=== PATIENT | male | born 1975 | race Caucasian/White ===

== ENCOUNTER 2024-12-21 13:03 | Outpatient (AMB) | payer OTHER, SELFPAY ==
--- NOTE | 2024-12-21 13:10 | MHC.OFFVIS ---
Intake Visit Reasons: lab follow up Intake Note: Patient is present for LABS F/U Urology Medication:TADALAFIL,TAMSULOSIN Antibiotic Allergy:NONE Blood Thinner:NONE Property Controller Required: No Allergies No Known Allergies Allergy (Verified 12/21/24 13:11) Assessment & Plan Assessment & Plan (1) Hypogonadism in male: Code(s): E29.1 - Testicular hypofunction Category: Medical Orders: Orders Complete Blood Count no Diff 6 Months E29.1 - Testicular hypofunction AMB Urinalysis Automated Today Z13.9 - Encounter for screening, unspecified Prostate Specific Antigen 6 Months E29.1 - Testicular hypofunction Testosterone, Total 6 Months E29.1 - Testicular hypofunction Medications: Discontinued cephalexin Discontinued Reason: Patient no longer taking 500 mg PO BID 5 days 10 caps 0RF amoxicillin-pot clavulanate 500-125 mg (Augmentin) Discontinued Reason: Patient no longer taking 1 tab PO Q8H 5 days 15 tabs 0RF N39.0 - Urinary tract infection, site not specified azithromycin (Zithromax Z-Zhang) Discontinued Reason: Patient no longer taking For 250 mg dose pack: take 500 mg today (day 1), then 250 mg for 4 days (days 2-5) PO 6 tabs 0RF J06.9 - Acute upper respiratory infection, unspecified, N50.819 - Testicular pain, unspecified Coding Diagnoses Hypogonadism in male E29.1
--- OUTSIDE RECORDS SUMMARY | 2024-12-21 13:40 | XMS_ITS | Clinical Summary ---
Author Organization Formerly [facility] Address [address] [place] [address] Care Team Providers Care Retail Marketing Manager Name Role Phone Rebekah Connelly MD Primary Care Provider [phone] Allergies No known active allergies Medications liothyronine (CYTOMEL) 5 MCG tablet Take 5 mcg by mouth every evening. 1 03/12/2016 Active testosterone enanthate (DELATESTRYL) 200 MG/ML injection INJECT 100MG (0.5ML) WEEKLYDIS CARD AFTER 30 DAYS 0 02/20/2016 Active ARMOUR THYROID 60 MG tablet Take 60 mg by mouth 2 (two) times a day. 3 03/11/2016 Active Social History Tobacco Use Types Packs/Day Years Used Date Smoking Tobacco: Never Smokeless Tobacco: Never Alcohol Use Standard Drinks/Week Comments Yes 0 (1 standard drink = 0.6 oz pur e alcohol) Sex and Gender Information Value Date Recorded Sex Assigned at Not on file Legal Sex Male 1:24 PM EDT Gender Identity Not on file Sexual Orientation Not on file Plan of Treatment Health Maintenance Due Date Last Done Comments Hepatitis C Virus Screening 1976 HIV Screening 1989 DTaP/Tdap/Td Vaccines (1 - Tdap) 12/15/1995 Hepatitis B Vaccines (1 of 3 - 19+ 3-dose series) 12/15/1995 Colonoscopy 2021 COVID-19 Vaccine ( - 2023-2 5 season) 2024 Influenza Vaccine 03/03/2025 Pneumococcal Vaccine: Pediat darnell (0-5 Years) and At-Risk Patients (6 to 49 Years) Aged Out No longer eligible b ased on patient's age to complete this topic Insurance [facility] Care Teams Retail Marketing Manager Relationship Specialty Start Date End Date Rebekah Connelly MD [address] [place] [phone] PCP - General 04/24/16
--- OUTSIDE RECORDS SUMMARY | 2024-12-21 13:40 | XMS_ITS | Clinical Summary ---
Author Organization [address] [place] [address] [place] [phone] Phone Care Team Providers Care Tie Bucker Name Role Phone Rebekah Connelly MD Primary Care Provider [phone] Allergies No known active allergies Active Problems Problem Noted Date Diagnosed Date Dermatofibroma 10/20/2024 Encounters Date Type Department Care Team Description 10/20/2024 1:30 PM EDT Consult Plastic & Reconstructive Surgery [address] [place] [address] Ander Rdz DO Dermatofibroma (Primary Dx) from Last 3 Months Social History Tobacco Use Types Packs/Day Years Used Date Smoking Tobacco: Former Cigarettes Q uit: 2004 Smokeless Tobacco: Never Tobacco Cessation:Counseling Given: Not Answered Alcohol Use Standard Drinks/Week Comments Yes 2 (1 standard drink = 0.6 oz pur e alcohol) Sex and Gender Information Value Date Recorded Sex Assigned at Not on file Legal Sex Male 9:35 PM EST Gender Identity Not on file Sexual Orientation Not on file Obstetrics History Last Filed Vital Signs Vital Sign Reading Time Taken Comments Blood Pressure 122/80 10/20/2024 1:53 PM EDT Pulse 65 10/20/2024 1:53 PM EDT Temperature - - Respiratory Rate - - Oxygen Saturation - - Inhaled Oxygen Concentration - - Weight 95.9 kg (211 lb 6.4 oz) 10/20/2024 1:53 P M EDT Height 177.8 cm (5' 10 ) 10/20/2024 1:53 PM EDT Body Mass Index 30.33 10/20/2024 1:53 PM EDT Plan of Treatment Health Maintenance Due Date Last Done Comments COVID-19 Vaccine (#1) 1981 Pneumococcal Vaccine: Pediat rics (0 to 5 Years) and At-Risk Patients (6 to 64 Years) (1 of 2 - PCV) 12/15/1995 Hepatitis B Vaccines (2 of 3 - 19+ 3-dose series) 08/17/2015 07/20/2015 Cholesterol Screening (Lipid Panel) 10/18/2024 Colorectal Cancer Screening: Colonoscopy 10/18/2024 Depression Screening 10/18/2024 HIV Screening 10/18/2024 Hepatitis C Screening 10/18/2024 Social Influencers of Health Screening 10/18/2024 Influenza Vaccine (Season Ended) 2025 DTaP,Tdap,and Td Vaccines (2 - Td or Tdap) 01/04/2034 01/05/2024 MMR Vaccines Aged Out 01/05/2024 No longer eligi ble based on patient's age to complete this topic HIB Vaccines Aged Out No longer eligi ble based on patient's age to complete this topic HPV Vaccines Aged Out No longer eligi ble based on patient's age to complete this topic Hepatitis A Vaccines Aged Out No long er eligible based on patient's age to complete this topic IPV Vaccines Aged Out No longer eligi ble based on patient's age to complete this topic Meningococcal ACWY Vaccine Aged Out N o longer eligible based on patient's age to complete this topic Meningococcal B Vaccine Aged Out No l onger eligible based on patient's age to complete this topic RSV Immunization Patients Un leila 20 months Aged Out No longer eligible b ased on patient's age to complete this topic Varicella Vaccines Aged Out No longer eligible based on patient's age to complete this topic Procedures Procedure Name Priority Date/Time Associated Diagnosis Comments TISSUE EXAM Routine 10/20/2024 2:41 PM EDT Dermatofibroma from Last 3 Months Results * Tissue Exam (10/20/2024 2:41 PM EDT) Final Diagnosis Skin, nose-punch biopsy: -FIBROUS PAPULE 10/21/2024 8:15 AM EDT [facility] Clinical Information Dermatofibroma - D23.9 [ICD-10-CM] 10/21/2024 8:15 AM EDT [facility] Gross Description A. Nose, : Labeled with the patient's name and information . Received in formalin is a 0.2 cm in greatest diameter white, discoid in shape portion of skin excised to a depth of 0.15 cm. The base is inked blue and the epidermis is inked red for ease of embedding purposes. The specimen is submitted in toto in one cassette, one piece, multiple levels on one slide. TS 10/21/2024 8:15 AM EDT [facility] Disclaimer Unless otherwise specified, all tissue is 10% NB formalin fixed and paraffin embedded. 10/21/2024 8:15 AM EDT [facility] Tissue Nasal structure / Unknown 10/20/2024 2:41 PM EDT 10/20/2024 3:27 PM EDT Ander Rdz DO LAB PATHOLOGY ORDERABLES Fin al Result [facility] [address] [place] [address], from Last 3 Months Insurance [employer] Care Teams Tie Bucker Relationship Specialty Start Date End Date Rebekah Connelly MD [address] [place] [phone] PCP - General Internal Medicine 10/20/24
== END 2024-12-21 14:11 | disposition home or self-care (01) ==
LOC: HO.HUSH 13:03
PROVIDERS: PCP Internal Medicine; Visit Provider Urology
DX: Z13.9 Encounter for screening, unspecified (principal)

== ENCOUNTER → 2024-12-21 13:03 | Outpatient (BNVA) | payer OTHER, SELFPAY | PROVIDERS: PCP Internal Medicine; Visit Provider Urology | DX: E29.1 Testicular hypofunction (principal); N39.0 Urinary tract infection, site not specified; J06.9 Acute upper respiratory infection, unspecified; N50.819 Testicular pain, unspecified | CPT/HCPCS: 81003 ==

== ENCOUNTER 2025-06-20 14:00 | Outpatient (AMB) | payer OTHER, SELFPAY ==
--- NOTE | 2025-06-20 14:20 | A.OFFVIS_ITS ---
Intake Visit Reasons: 6M PSA/Testo(set) Intake Note: Patient is present for 6 mo follow up Urology Medication:TADALAFIL,TAMSULOSIN, Testosterone Antibiotic Allergy:NONE Blood Thinner:NONE Labs done :06/02/25 : CBC Total Testosterone 885, PSA 0.63 Certified Alcohol And Drug Counselor Required: No Accompanied by: Self / Same As Patient Allergies No Known Allergies Allergy (Verified 06/20/25 14:21) HPI Comments Details: Tony is a pleasant male. He is a patient of . He is seen for the following urologic conditions - hypogonadism Interested in tirzepatide during the holiday season Prescriptions sent to [facility] Reviewed lab work T in effective range Longstanding hypogonadism Secondary to exogenous T use when younger Has been on replacement for a number of years Prescriptions refilled Review in six-month with lab work 120 mg injectable weekly with low-dose anastrozole Lab work - 05/27 T 885 Obtains testosterone locally, anastrozole from [employer] plus Review of Systems Const Denies chills and Denies fever(s) Card Reports no additional complaints and Denies syncope Resp Denies cough GI Denies abdominal pain and Denies heartburn Reports as per HPI and Denies change in libido Neuro Denies syncope Psych Denies change in libido Endo Denies change in libido Physical Exam Const General: cooperative, healthy appearing, comfortable and no acute distress Orientation/consciousness: patient oriented x3 HEENT Face and sinus: Yes normal facial exam Mouth: moist mucous membranes Neck Neck: Yes normal visual inspection, Yes full ROM and Yes trachea midline Chest Chest palpation & inspection: normal inspection of the chest Resp Effort & Inspection: normal respiratory effort, able to speak in complete sentences and no respiratory distress GI Inspection: Yes normal to inspection Back/Spine/Pelvis Cervical Spine: normal cervical lordosis Thoracic/Lumbar Spine: thoracic and lumbar spine normal to inspection Skin General skin exam: no rashes or lesions noted Neuro General: patient oriented x3, gait normal, tone normal and moves all extremities Extrem General: Yes normal to inspection and Yes capillary refill normal Assessment & Plan Assessment & Plan (1) Hypogonadism in male: Code(s): E29.1 - Testicular hypofunction Category: Medical (2) Weak urinary stream: Code(s): R39.12 - Poor urinary stream Category: Medical (3) Erectile dysfunction: Code(s): N52.9 - Male erectile dysfunction, unspecified Category: Medical Plan Six-month follow-up lab work Orders: Orders Estrad Free (Tot Ultra + Free) 5 Months E29.1 - Testicular hypofunction Testosterone, Total 5 Months E29.1 - Testicular hypofunction Lutenizing Hormone 5 Months E29.1 - Testicular hypofunction Hematocrit 5 Months E29.1 - Testicular hypofunction Medications: New tirzepatide (weight loss) inject as instructed Zzzv - [phone] 15 mg (0.5 mL) subcut QWEEK 2 mL 5RF 28 days E66.3 - Overweight, N52.9 - Male erectile dysfunction, unspecified Patient Instructions: This note is constructed using voice recognition software. While every effort has been made to ensure accuracy adult literacy teacher errors may have been included. Imaging studies, laboratory and physical exam results were discussed and reviewed in detail. No major barriers to patient understanding were identified. An opportunity to ask questions regarding the treatment plan was provided. All questions were answered. The patient expressed understanding and agreement with the above treatment plan. The patient is aware they should contact our office by phone for worsening of their current condition or the appearance of new urologic symptoms. Compliance is encouraged with any medications and followup testing that is ordered. It is a privilege to participate in the urologic care of your patient. If you have any questions or concerns regarding treatment for the above conditions, or other urologic issues, please do not hesitate to contact me. The office telephone contact is [phone]. Sincerely, Dr Diaz Negron MD, [facility] - Urology Compassionate Specialist Care for the Genitourinary System Coding Level of Care Code Est Pt Level 4 (75259) Diagnoses Hypogonadism in male E29.1 Weak urinary stream R39.12 Erectile dysfunction N52.9
--- OUTSIDE RECORDS SUMMARY | 2025-06-21 08:04 | XMS_ITS | Clinical Summary ---
Author Organization Formerly [facility] Address [address] [place] [address] Care Team Providers Care Boot And Saddle Repair Person Name Role Phone Rebekah Connelly MD Primary Care Provider [phone] Allergies No known active allergies Medications liothyronine [...] - 19+ 3-dose series) 12/15/1995 Colonoscopy 2021 Influenza Vaccine 03/03/2025 COVID-19 Vaccine (1 - 2023-2 5 season) 2025 Pneumococcal Vaccine: Pediat darnell (0-5 Years) and At-Risk Patients (6 to 49 Years) Aged Out No longer eligible b ased on patient's age to complete this topic Insurance [facility] Care Teams Boot And Saddle Repair Person Relationship Specialty Start Date End Date Rebekah Connelly MD [address] [place] [phone] PCP - General 04/24/16
--- OUTSIDE RECORDS SUMMARY | 2025-06-21 08:04 | XMS_ITS | Clinical Summary ---
Author Organization [address] [place] [address] [place] [phone] Phone Care Team Providers Care Warehouseman Name Role Phone Rebekah Connelly MD Primary Care Provider [phone] Allergies No known active allergies Active Problems Problem Noted Date Diagnosed Date Dermatofibroma 10/20/2024 Social History Tobacco Use Types Packs/Day Years Used Date Smoking Tobacco: Former Cigarettes 0 Q uit: 2004 Smokeless Tobacco: Never Tobacco [...] Health Maintenance Due Date Last Done Comments Colorectal Cancer Screening: Colonoscopy 1976 Hepatitis B Vaccines (2 of 3 - 19+ 3-dose series) 08/17/2015 07/20/2015 Depression Screening 08/03/2024 Cholesterol Screening (Lipid Panel) 10/18/2024 HIV Screening 10/18/2024 Hepatitis C Screening 10/18/2024 Social Influencers of Health Screening 10/18/2024 COVID-19 Vaccine (1 - 2024-2 6 season) 2025 Influenza Vaccine (#1) 2025 DTaP,Tdap,and Td Vaccines (2 - Td or Tdap) 01/04/2034 01/05/2024 RSV Immunization Adult Patie nts (1 - 1-dose 75+ series) 12/15/2051 MMR Vaccines Aged Out 01/05/2024 No longer [...] on patient's age to complete this topic Pneumococcal Vaccine: Pediat rics (0 to 5 Years) and At-Risk Patients (6 to 49 Years) Aged Out No longer eligi ble based on patient's age to complete this topic RSV Immunization Patients Un leila 20 months Aged Out No longer eligible b ased on patient's age to complete this topic Varicella Vaccines Aged Out No longer eligible based on patient's [place] [id number] [employer] Care Teams Warehouseman Relationship Specialty Start Date End Date Rebekah Connelly MD [address] [place] [phone] PCP - General Internal Medicine 10/20/24
== END 2025-06-20 14:48 | disposition home or self-care (01) ==
LOC: HO.HUSH 14:00
PROVIDERS: PCP Internal Medicine; Visit Provider Urology
DX: E29.1 Testicular hypofunction (principal); R39.12 Poor urinary stream; N52.9 Male erectile dysfunction, unspecified
CPT/HCPCS: 99214